=== PATIENT | female | born 1935 | race Caucasian/White ===

== ENCOUNTER 2019-03-13 12:18 | Emergency (ER) | payer OTHER, MEDICARE ==
[2019-03-13 12:28] VITALS: TEMP 98.4; BMI 23.6
[2019-03-13] MEDS ORDERED: ACETAMINOPHEN 500 MG TABLET (FP) PO ONE (12:41)
[2019-03-13] MEDS ORDERED: ACETAMINOPHEN 500 MG TABLET (FP) ONE (12:48)
--- NOTE | 2019-03-13 12:56 | PDOC ---
History of Present Illness - General Chief Complaint: Injury Stated Complaint: FALL Time Seen by Provider: 03/13/19 12:22 - History of Present Illness Initial Comments: 03/13/19 12:46 83-year-old female with a history of breast cancer status post lumpectomy and radiation, in remission on anastrozole, hypertension, hyperlipidemia presents to the emergency department with left wrist, right rib, and right ankle pain after a fall in the supermarket. Per patient and her daughter, patient was waiting at the end of the register with her grocery cart, when another customer try to pass to her right. The other customers shopping cart knocked over a large pile of firewood onto the patient's right side causing her to fall over. The patient reports another customer was able to catch her before she fully the ground. She denies any head strike or loss of consciousness. She does report bracing herself with her left wrist. She states the firewood hit the right side of her body. She was in her usual state of good health prior to this occurring. She does not take any blood thinners or aspirin. Denies any recent fevers, chills. Denies headache, focal weakness or numbness, dizziness, chest pain, shortness of breath, abdominal pain, nausea, vomiting, diarrhea, LE edema. Past History - Past Medical History Allergies/Adverse Reactions: Allergies Allergy/AdvReac Type Severity Reaction Status Date / Time Sulfa (Sulfonamide Allergy Intermediate Itching Verified 03/13/19 12:23 Antibiotics) ibuprofen [From Motrin] Allergy Verified 03/13/19 12:23 Home Medications: Ambulatory Orders Simvastatin [Zocor -] 20 mg PO HS #0 tablet 06/27/11 Anastrozole [Arimidex] 1 mg PO ASDIR 03/13/19 Lisinopril [Prinivil] 10 mg PO DAILY 03/13/19 clonazePAM [Klonopin -] 0.5 mg PO PRN 03/13/19 Anemia: No Asthma: No Cancer: Yes (LEFT BREAST) Cardiac Disorders: No CVA: No COPD: No CHF: No Dementia: No Diabetes: No GI Disorders: Yes (HX OF ULCER ) Disorders: No HTN: Yes Hypercholesterolemia: Yes Liver Disease: No Seizures: No Thyroid Disease: No - Surgical History Abdominal Surgery: No Appendectomy: Yes Cardiac Surgery: No Cholecystectomy: No Lung Surgery: No Neurologic Surgery: No Orthopedic Surgery: No - Psycho Social/Smoking Cessation Hx Smoking Status: No Smoking History: Never smoked Have you smoked in the past 12 months: No Number of Cigarettes Smoked Daily: 0 Hx Alcohol Use: No Drug/Substance Use Hx: No Substance Use Type: None Hx Substance Use Treatment: No Review of Systems - Review of Systems Comments:: 03/13/19 12:56 GENERAL/CONSTITUTIONAL: No fever or chills. No weakness. HEAD, EYES, EARS, NOSE AND THROAT: No change in vision. No ear pain or discharge. No sore throat. GASTROINTESTINAL: No nausea, vomiting, diarrhea or constipation. GENITOURINARY: No dysuria, frequency, or change in urination. CARDIOVASCULAR: No chest pain or shortness of breath. RESPIRATORY: No cough, wheezing, or hemoptysis. MUSCULOSKELETAL: +L wrist, R ankle, R rib pain. No neck or back pain. SKIN: No rash NEUROLOGIC: No headache, vertigo, loss of consciousness, or change in strength/ sensation. ENDOCRINE: No increased thirst. No abnormal weight change. HEMATOLOGIC/LYMPHATIC: No anemia, easy bleeding, or history of blood clots. ALLERGIC/IMMUNOLOGIC: No hives or skin allergy. *Physical Exam - Vital Signs Last Vital Signs Temp Pulse Resp BP Pulse Ox 98.4 F 64 18 194/93 H 99 03/13/19 12:22 03/13/19 12:22 03/13/19 12:22 03/13/19 12:22 03/13/19 12:22 - Physical Exam Comments: 03/13/19 12:57 GENERAL: Awake, alert, and fully oriented, in no acute distress HEAD: No signs of trauma, no bony ttp EYES: EOMI, sclera anicteric, conjunctiva clear ENT: Auricles normal inspection, hearing grossly normal, nares patent, oropharynx clear without exudates. Moist mucosa NECK: Normal ROM, supple, no lymphadenopathy, JVD, or masses BACK: No midline cervical, thoracic, or lumbar ttp, deformities or stepoffs. LUNGS: Breath sounds equal, clear to auscultation bilaterally. No wheezes, and no crackles HEART: Regular rate and rhythm, normal S1 and S2, no murmurs, rubs or gallops. R 11th rib at mid clavicular line with ttp, no deformities/crepitus ABDOMEN: Soft, nontender, normoactive bowel sounds. No guarding, no rebound. No masses EXTREMITIES: L distal radius with mild edema, and bony ttp. No gross deformity. No snuffbox ttp. Normal strength and sensation to entire LUE with FROM. 2+ radiual pulse. R lateral malleolus with mild edema and bony ttp but FROM of ankle, normal dorsi and plantar flexion. Normal stregnth and sensation distally. + DP pulse. Otherwise, normal range of motion, no edema. No clubbing or cyanosis. No cords, erythema, or tenderness NEUROLOGICAL: Normal speech, cranial nerves intact, equal strength and sensation b/l. Normal gait. SKIN: Superficial abrasion to R lateral malleolus. Otherwise, skin is warm, Dry , normal turgor, no rashes or lesions noted. ED Treatment Course - RADIOLOGY Radiology Studies Ordered: Category Date Time Status ANKLE & FOOT-RIGHT* [RAD] Stat Radiology 03/13/19 12:41 Ordered CHEST PA & LAT [RAD] Stat Radiology 03/13/19 12:39 Ordered FOREARM- LEFT [RAD] Stat Radiology 03/13/19 12:40 Ordered RIBS RIGHT SIDE [RAD] Stat Radiology 03/13/19 12:40 Ordered WRIST-LEFT [RAD] Stat Radiology 03/13/19 12:40 Ordered Medical Decision Making - Medical Decision Making 03/13/19 13:04 83yo F presesnts to the ED after a mechanical fall, was knocked over 2/2 firewood falling on her No head strike or injury Plan for plain films of R ribs, chest, L forearm/wrist, R ankle Pain control with tylenol Reassess 03/13/19 15:13 XR negative for acute injury Pain improved with tylenol Likely rib/ankle/forearm contusion Tdap updated - pt does not remember last one Pt well appearing, ambualting in ED, clincially stable for DC home I discussed the physical exam findings, ancillary test results and final diagnoses with the patient. I answered all of the patient's questions. The patient was satisfied with the care received and felt comfortable with the discharge plan and treatment plan. The patient will call their primary care physician within 24 hours to arrange follow-up and will return to the Emergency Department with any new, persistent or worsening symptoms. Discharge - Discharge Information Problems reviewed: Yes Clinical Impression/Diagnosis: Fall, Contusion of rib on right side, Ankle pain Condition: Stable Disposition: HOME - Admission No - Follow up/Referral - Patient Discharge Instructions Patient Printed Discharge Instructions: DI for Rib Contusion, DI for Ankle Pain Additional Instructions: Follow up with your primary care doctor within 2- 3 days Apply ice to your ankle and wrist 3-4 times a day for 15 minutes Take tylenol as needed for pain. Do not exceed 4 grams of tylenol daily as this can cause liver damage Return to the emergency department if you have any new, worsening, or concerning symptoms such as persistent rib pain, shortness of breath, or chest pain We hope you feel better soon! - Post Discharge Activity
[2019-03-13 14:27] VITALS: BP 126/70; PULSE 58
[2019-03-13] MEDS ORDERED: DIPHTH,PERTUSS(ACELL),TET 0.5 ML DISP.SYRIN IM ONE ×2 (14:44→14:45)
== END 2019-03-13 14:57 | disposition home or self-care (01) ==
LOC: FER 12:18
PROC: 3E0234Z Introduction of Serum, Toxoid and Vaccine into Muscle, Percutaneous Approach (ICD-10-PCS; principal; 2019-03-13)
DX: S20.219A Contusion of unspecified front wall of thorax, initial encounter (principal); M25.571 Pain in right ankle and joints of right foot; W20.8XXA Other cause of strike by thrown, projected or falling object, initial encounter; Y93.89 Activity, other specified; Y92.512 Supermarket, store or market as the place of occurrence of the external cause; Z88.2 Allergy status to sulfonamides; Z88.8 Allergy status to other drugs, medicaments and biological substances; I10 Essential (primary) hypertension; K92.9 Disease of digestive system, unspecified; Z85.3 Personal history of malignant neoplasm of breast; E78.5 Hyperlipidemia, unspecified
CPT/HCPCS: 71046-TC-FY; 71101-TC-RT-FY; 73090-TC-LT-FY; 73110-TC-LT-FY; 73610-TC-RT-FY; 73630-TC-RT-FY; 90715; 99282-25

== ENCOUNTER 2023-03-29 15:32 | Emergency (ER) | payer OTHER, MEDICARE ==
[2023-03-29 15:47] VITALS: BP 146/75; PULSE 72; RESP 18; TEMP 98.2; BMI 23.9
[2023-03-29] MEDS ORDERED: ACETAMINOPHEN 500 MG TABLET (FP) PO ONE (15:54)
[2023-03-29] MEDS ORDERED: ACETAMINOPHEN 500 MG TABLET (FP) ONE (16:09)
== END 2023-03-29 17:29 | disposition home or self-care (01) ==
LOC: FER 15:32
DX: M25.561 Pain in right knee (principal); R22.41 Localized swelling, mass and lump, right lower limb
CPT/HCPCS: 93971-TC; 99284-25